=== PATIENT | male | born 1980 | race African-American/Black ===

== ENCOUNTER 2023-06-13 19:44 | Emergency (ER) | payer OTHER ==
[2023-06-13 19:54] VITALS: BP 118/74; PULSE 72; RESP 18; TEMP 97.3; BMI 23.1
[2023-06-14] MEDS ORDERED: POLYETHYLENE GLYCOL (HEALTHYLAX) 3350 17 GM PACKET ONE (01:06)
[2023-06-14] MEDS: POLYETHYLENE GLYCOL (HEALTHYLAX) 3350 17 GM PACKET PO SCH (01:10)
== END 2023-06-14 01:17 | disposition home or self-care (01) ==
LOC: JERFT 19:44
DX: R10.32 Left lower quadrant pain (principal); K59.00 Constipation, unspecified
CPT/HCPCS: 71046-TC-FY; 74018-TC-FY; 99284-25